=== PATIENT | female | born 1990 | race Caucasian/White ===

== ENCOUNTER 2022-12-17 15:59 | Outpatient (REF) | payer MEDICAID, SELFPAY ==
[2022-12-17 15:52] LABS: HCT 39.2 % (36.0-46.0); MCHC 33.2 % (32.0-36.0); MCV 91 fL (80-95); MPV 9.8 fL (8.0-11.0); Platelet Count 412 10^3/uL (130-400); RBC 4.33 10^6/uL (3.93-5.22); RDW 12.8 % (11.7-14.6); RDW-SD 42.3 fL; WBC 12.48 10^3/uL (4.4-10.8)
[2022-12-17 16:21] LABS: Anion Gap 9.6 mmol/L (3-11); BUN 13 mg/dL (7-18); CO2 24.4 mmol/L (21.0-32.0); CREATININE 0.9 mg/dL (0.55-1.02); Calcium 9.2 mg/dL (8.5-10.1); Chloride 100 mmol/L (98-107); Estimated GFR 86.57 (mL/min/1.73m2); Glucose 101 mg/dL (74-106); Potassium 4.2 mmol/L (3.5-5.1); Sodium 134 mmol/L (136-145); TSH 1.28 uIU/mL (0.36-3.74)
[2022-12-17 17:00] LABS: Vitamin D 25 Total 33.3 ng/mL (30-100)
[2022-12-17 17:03] LABS: Hemoglobin A1C 5.5 % (<5.7)
== END 2022-12-17 16:00 | disposition home or self-care (01) ==
LOC: NCHCN 15:59
PROVIDERS: PCP Nurse Practitioner Family; Visit Provider Nurse Practitioner Family
DX: F41.8 Other specified anxiety disorders (principal); E55.9 Vitamin D deficiency, unspecified; R73.03 Prediabetes; E66.3 Overweight; G43.909 Migraine, unspecified, not intractable, without status migrainosus
CPT/HCPCS: 80048; 82306; 85027; 83036; 84443

== ENCOUNTER 2023-03-18 16:27 | Outpatient (REF) | payer MEDICAID, SELFPAY | END 2023-03-18 16:28 | disposition home or self-care (01) | LOC: NCHCN 16:27 | PROVIDERS: PCP Nurse Practitioner Family; Visit Provider Nurse Practitioner Family | DX: Z87.42 Personal history of other diseases of the female genital tract (principal); N89.8 Other specified noninflammatory disorders of vagina | CPT/HCPCS: 87480; 87510; 87660 ==

== ENCOUNTER 2023-04-09 11:01 | Outpatient (REF) | payer MEDICAID, SELFPAY ==
--- NOTE | 2023-04-09 10:00 | PAPFT_PTH ---
PATIENT: Lory Del Toro LOC: [facility][id number] AGE/SX: 33/F ROOM: RE04/09/[address]: Arlen Nava : 1990 BED: DIS: 04/09/2023 SPEC #: [id number] RECD: 04/09/23 18:17 STATUS: AMARILIS REQ #: [id number] LUCI: 04/09/23 10:[address]: Arlen Nava DEPT: [facility] Cytology RECD BY: Suzanne Tineo Tissues: 1 - CX/ENDOCX FOR PAP SMEARS Procedures: PAP THIN PREP/UVM Screening HPV DNA PROBE Comments: [id number]
--- OUTSIDE RECORDS SUMMARY | 2023-04-09 11:04 | XMS_ITS ---
Author Name Camelia Lee Address [address] [place] [address] Organization [facility] Address [address] [place] [address] Support Name Relationship Address Phone GILBERT PECK Guarantor [address] [place], [place] [id number] ELLEN BURTON Emergency Contact [address] [place] [address] Care Team Providers Care Predatory Animal Hunter Name Role Phone Camelia Lee Unavailable [phone] PROBLEMS Type Condition ICD9-CM Code BDI01-AW Code Onset Dates Condition Status SNOMED Code Problem Smoking F17.200 Active 66555265 Problem Overweight (BMI 25.0-29.9) E66.3 Active 371905536 Problem Depression with anxiety F41.8 Feb, Active 162013142 Problem Osteopenia M85.80 Active 80342108 Problem Oral contraceptive use Z30.41 Active [id number] ALLERGIES No Known Allergies ENCOUNTERS Encounter Location Date Diagnosis [facility] [address] [place] [address] Nov, [facility] [address] [place] [address] Aug, [facility] [address] [place] [address] Aug, Abscess L02.91 [facility] [address] [facility] [address] Apr, UNKNOWN Apr, [facility] [address] [place] [address] March, [facility] [place] [address] [place] [address] March, Depression with anxiety F41.8 [facility] [address] [place] [address] March, [facility] [address] [place] [address] Jan, [facility] [address] [place] [address] Jul, Abscess L02.91 [facility] [address] [place] [address] Jul, [facility] [address] [place] [address] Jun, [facility] [address] [place] [address] May, Screening for cervical cancer Z12.4 ; Oral contraceptive use Z30.41 and Smoking F17.200 [facility] [address] [place] [address] Apr, Well adult health check Z00.00 ; Depression with anxiety F41.8 ; Osteopenia M85.80 ; Smoking F17.200 ; Overweight (BMI 25.0-29.9) E66.3 ; Encounter for drug screening Z02.83 and Alcohol screening Z13.89 [facility] [address] [place] [address] March, [facility] [address] [place] [address] 16 Mar, 2019 Oral contraceptive use Z30.41 [facility] [address] [place] [address] Nov, [facility] [address] [place] [address] 15 Apr, 2018 Oral contraceptive prescribed Z30.011 ; Oral contraceptive use Z30.41 and Smoking F17.200 [facility] [address] [place] [address] Jan, Osteopenia M85.80 ; Depression with anxiety F41.8 ; Obesity (BMI 30-39.9) E66.9 ; Heartburn R12 ; Family history of diabetes mellitus (DM) Z83.3 and Encounter for immunization Z23 [facility] [address] [place] [address] Aug, [facility] [address] [place] [address] Aug, Strep pharyngitis J02.0 and Left otitis media H66.92 [facility] [address] [place] [address] Aug, Grief counseling Z71.89 [facility] [address] [facility] [address] [place] [address] Feb, Abscess of axilla, left L02.412 ; History of MRSA infection Z86.14 and Tachycardia R00.0 [facility] [address] [place] [address] 18 Feb, 2016 [facility] [address] [place] [address] Feb, [facility] [address] [place] [address] Feb, Abscess of axilla, left L02.412 [facility] [address] [place] [address] Feb, [facility] [address] [place] [address] Dec, [facility] [address] [place] [address] Apr, Heartburn 787.1 ; AMENORRHEA 626.0 and Abdominal pain, epigastric 789.06 [facility] [address] [place] [address] Apr, AMENORRHEA 626.0 ; Heartburn 787.1 and Abdominal pain, epigastric 789.06 [facility] [address] [place] [address] Jan, DEPO PROVERA FOR CONTROL V25.9 [facility] [address] [place] [address] Oct, Contraceptive management V25.9 [facility] [address] [place] [address] Aug, DEPO PROVERA FOR CONTROL V25.9 [facility] [address] [place] [address] May, DEPO PROVERA FOR CONTROL V25.9 UNKNOWN May, [facility] [address] [place] [address] Feb, CONTRACEPTIVE MANGMT NEC V25.09 [facility] [address] [place] [address] Nov, [facility] [address] [place] [address] Nov, CONTRACEPTIVE MANGMT NEC V25.09 [facility] [address] [place] [address] Aug, DEPO PROVERA FOR CONTROL V25.9 [facility] TE[facility] [address] [place] [address] Jun, DEPO PROVERA FOR CONTROL V25.9 [facility] [address] [place] [address] March, CONTRACEPTIVE MANGMT NEC V25.09 [facility] [address] [place] [address] March, [facility] [address] [place] [address] Jan, Osteopenia 733.90 ; CERVICALGIA 723.1 and Back pain 724.5 [facility] [address] [place] [address] Jan, Osteopenia 733.90 ; CERVICALGIA 723.1 and Back pain 724.5 [facility] [address] [place] [address] 17 Nov, 2010 [facility] [address] [place] [address] 13 Oct, 2010 Depression with anxiety 300.4 and Heartburn 787.1 [facility] [address] [place] [address] 04 Sep, 2010 Depression with anxiety 300.4 [facility] [address] [place] [address] 28 Aug, 2010 [facility] [address] [place] [address] Aug, [facility] [address] [place] [address] Aug, [facility] OFF[facility] [address] [place] [address] 19 Aug, 2010 Low back pain 724.2 and CERVICALGIA 723.1 [facility] [address] [place] [address] 14 Aug, 2010 ORTHOPEDIC OFFICE [address] [place] [address] 28 Jul, 2010 CERVICALGIA 723.1 and Low back pain 724.2 [facility] [address] [place] [address] 27 Jul, 2010 Back pain 724.[address] [place] [address] 22 Jul, 2010 [facility] [address] [place] [address] 08 Jul, 2010 FATIGUE 780.79 [facility] [address] [place] [address] 08 Jul, 2010 FATIGUE 780.79 ; Back pain 724.5 and Tachycardia 785.0 [facility] [address] [place] [address] 16 Nov, 2008 CONTRACEPTIVE MANGMT NEC V25.09 and CONTRACEPT SURVEILL NOS V25.40 [facility] [address] [place] [address] Jun, Chlamydia 483.1 UNKNOWN Jun, [facility] [address] [place] [address] May, ROUTINE MEDICAL EXAM V70.0 ; CONTRACEPT SURVEILL NEC V25.49 ; SCRN UNSPCF CHLMYD DIS V73.98 ; SCREEN FOR VENERAL DISEASE STD V74.5 ; CONTRACEPT MGMT-EMERGNCY V25.03 ; SCREEN-DEFIC ANEMIA NEC V78.1 ; PAP SMEAR V76.2 and Anemia associated with other specified nutritional deficiency 281.8 [facility] [address] [place] [address] May, CONTRACEPTIVE MANGMT NEC V25.09 and CONTRACEPT MGMT-EMERGNCY V25.03 IMMUNIZATIONS Vaccine Route Administration Date Status Tdap adacel or Boostrix NONS FUENTES Adults IM Intramuscular January 24, 2018 Administered SOCIAL HISTORY Qualifiers Date Current Smoker 02/22/2008 REASON FOR REFERRAL FUNCTIONAL STATUS PLAN OF CARE Activity Details VITAL SIGNS Height 60 in 2019-07-23 Height 60 in 2019-05-25 Height 60 in 2019-04-30 Height 60 in 2018-04-18 Height 60 in 2018-01-24 Height 60 in 2017-08-29 Height 60 in 2016-02-22 Height 60 in 2016-02-14 Height N/A in 2013-04-27 Height N/A in 2013-01-22 Height N/A in 2012-10-30 Height N/A in 2012-08-05 Height N/A in 2012-05-14 Height N/A in 2012-02-13 Height N/A in 2011-11-19 Height N/A in 2011-08-27 Height N/A in 2011-06-04 Height 60 in 2010-10-16 Height N/A in 2008-05-31 Weight 146.6 lbs 2019-07-23 Weight 142.9 lbs 2019-05-25 Weight 141.2 lbs 2019-04-30 Weight 157.6 lbs 2018-04-18 Weight 163.2 lbs 2018-01-24 Weight 159.8 lbs 2017-08-29 Weight 168 lbs 2016-02-22 Weight 165.2 lbs 2016-02-14 Weight 164.8 lbs 2013-04-27 Weight 165.8 lbs 2013-01-22 Weight 161.4 lbs 2012-10-30 Weight 157.6 lbs 2012-08-05 Weight 161 lbs 2012-05-14 Weight 167.6 lbs 2012-02-13 Weight 161 lbs 2011-11-19 Weight 158 lb 4 oz lbs 2011-08-27 Weight 163.6 lbs 2011-06-04 Weight 172 lbs 2011-01-31 Weight 168 lbs 2010-10-16 Weight 168 lbs 2010-09-07 Weight 160 lbs 2010-07-12 Weight N/A lbs 2008-05-31 BMI 28.63 kg/m2 2019-07-23 BMI 27.91 kg/m2 2019-05-25 BMI 27.57 kg/m2 2019-04-30 BMI 30.78 kg/m2 2018-04-18 BMI 31.87 kg/m2 2018-01-24 BMI 31.21 kg/m2 2017-08-29 BMI 32.81 kg/m2 2016-02-22 BMI 32.26 kg/m2 2016-02-14 BMI 32.18 kg/m2 2013-04-27 BMI 32.38 kg/m2 2013-01-22 BMI 31.52 kg/m2 2012-10-30 BMI 30.78 kg/m2 2012-08-05 BMI 31.44 kg/m2 2012-05-14 BMI 32.73 kg/m2 2012-02-13 BMI 31.44 kg/m2 2011-11-19 BMI 30.90 kg/m2 2011-08-27 BMI 31.95 kg/m2 2011-06-04 BMI 32.81 kg/m2 2010-10-16 BMI N/A kg/m2 2008-05-31 Temperature 97.9 degrees Fahrenheit Temperature 98.3 degrees Fahrenheit Temperature TYMPANIC:98.1 degrees Fahrenheit 2019-04-30 Temperature 98.4 degrees Fahrenheit Temperature 99.5 degrees Fahrenheit Temperature 98.5 degrees Fahrenheit Temperature 100 degrees Fahrenheit 2016-02-04 0 Temperature 99.5 degrees Fahrenheit Temperature TYMPANIC:98.6 degrees Fahrenheit 2013-04-27 Temperature ORAL:98.3 degrees Fahrenheit 01-04-21 Temperature TYMPANIC:99.9 degrees Fahrenheit 2011-11-19 Temperature TYMPANIC:99.1 degrees Fahrenheit 2011-03-08 Temperature 99.4 degrees Fahrenheit Temperature 99.4 degrees Fahrenheit Temperature 99.1 degrees Fahrenheit Heart Rate 98 /min 2019-07-23 Heart Rate 86 /min 2019-05-25 Heart Rate 85 /min 2019-04-30 Heart Rate 98 /min 2018-04-18 Heart Rate 120 /min 2018-01-24 Heart Rate 128 /min 2017-08-29 Heart Rate 120 /min 2016-02-22 Heart Rate 146 /min 2016-02-14 Heart Rate 112 /min 2013-04-27 Heart Rate 108 /min 2013-01-22 Heart Rate 102 /min 2012-10-30 Heart Rate 102 /min 2012-08-05 Heart Rate 92 /min 2012-05-14 Heart Rate 100 /min 2012-02-13 Heart Rate 109 /min 2011-11-19 Heart Rate 100 /min 2011-08-27 Heart Rate 98 /min 2011-06-04 Heart Rate 110 /min 2011-03-08 Heart Rate 72 /min 2011-01-31 Heart Rate 111 /min 2010-10-16 Heart Rate 110 /min 2010-09-07 Heart Rate 117 /min 2010-07-12 Heart Rate N/A /min 2008-05-31 Respiratory Rate 18 /min 2019-07-23 Respiratory Rate 16 /min 2019-05-25 Respiratory Rate 16 /min 2019-04-30 Respiratory Rate 18 /min 2018-04-18 Respiratory Rate 18 /min 2018-01-24 Respiratory Rate 18 /min 2017-08-29 Respiratory Rate 18 /min 2016-02-22 Respiratory Rate 18 /min 2016-02-14 Respiratory Rate 18 /min 2013-04-27 Respiratory Rate 18 /min 2013-01-22 Respiratory Rate 16 /min 2012-10-30 Respiratory Rate 18 /min 2012-08-05 Respiratory Rate 20 /min 2012-05-14 Respiratory Rate 18 /min 2012-02-13 Respiratory Rate 18 /min 2011-11-19 Respiratory Rate 18 /min 2011-08-27 Respiratory Rate 18 /min 2011-06-04 Respiratory Rate 18 /min 2011-03-08 Respiratory Rate 18 /min 2011-01-31 Respiratory Rate 18 /min 2010-10-16 Respiratory Rate 18 /min 2010-09-07 Respiratory Rate 16 /min 2010-07-12 Respiratory Rate N/A /min 2008-05-31 Oximetry 99 % 2019-07-23 Oximetry 98 % 2019-05-25 Oximetry 98 % 2019-04-30 Oximetry 98 % 2018-04-18 Oximetry 98 % 2018-01-24 Oximetry 97 % 2017-08-29 Oximetry 98 % 2016-02-22 Oximetry 98 % 2016-02-14 Oximetry 98 % 2013-04-27 Oximetry 98 % 2013-01-22 Oximetry 98 % 2012-10-30 Oximetry 98 % 2012-08-05 Oximetry 98 % 2011-11-19 Oximetry 100 % 2011-08-27 Oximetry 96 % 2010-10-16 Oximetry 98 % 2010-09-07 Oximetry 97 % 2010-07-12 Blood pressure systolic 130 mm Hg Blood pressure diastolic 78 mm Hg 2019-07 MEDICATIONS Medication Instructions Dosage Frequency Start Date End Date Duration Status Norgestim-Eth Estrad Triphasic 0.18/0.215/0.25 MG-35 MCG Orally Once a day 1 tablet 24h Aug, 84 day(s) Active PROCEDURES Procedure Date Ordered Result Body Site CONTRACEPTIVE PILLS CONTROL May 31, 2008 CONTRACEPTIVE SUPPLY CONDOM MALE EA May 31, 2008 DEPO PROVERA () May 14, 2012 Pro.cl.INJ. SC/IM,Per 636 Med,Hosp.OPD(74887) May 14, 2012 DEPO PROVERA () March 08, 2011 No HTN DX,BP <120/80 (13975) Aug 29, 2017 Pro.cl.INJ. SC/IM,Per 636 Med,Hosp.OPD(14108) Nov 19, 2011 FAMILY PLANNING CONDOMS Nov 19, 2008 Pro.cl.INJ. SC/IM,Per 636 Med,Hosp.OPD(00059) Aug 05, 2012 No HTN DX,BP <120/80 (72420) April 18, 2018 Tob user, counseled (95482) May 25, 2019 UA- TEST ([facility] code 86142) April 27, 2013 Pro.cl.INJ. SC/IM,Per 636 Med,Hosp.OPD(61990) Jun 04, 2011 CONTRACEPTIVE PILLS CONTROL May 04, 2008 Tob non-user (39722) April 18, 2018 MEPILEX BORDER,3X3,4X4,6X6(17444) February 22, 2016 Med Rec done (83189) April 30, 2019 Tob non-user (11341) Aug 29, 2017 SBIRT SCREEN negative April 30, 2019 Tob non-user (37403) January 24, 2018 PLAN B (levonorgestrel) May 31, 2008 Med Rec done (81526) January 24, 2018 DEPO PROVERA () Nov 19, 2011 Med Rec done (49588) Aug 29, 2017 DEPO PROVERA () Jun 04, 2011 DEPO PROVERA () Aug 05, 2012 CONTRACEPTIVE SUPPLY CONDOM MALE EA Nov 19, 2008 Med Rec done (61881) April 18, 2018 Pro.cl.INJ. SC/IM,Per 636 Med,Hosp.OPD(96006) March 08, 2011 No HTN DX,BP <120/80 (63862) April 30, 2019 IMMUNIZATION INJ FEE, January 24, 2018 CONTRACEPTIVE PILLS CONTROL Nov 19, 2008 No HTN DX,BP <120/80 (77345) May 25, 2019 Hgb fingerstick (Hemocue) (chg code 60062) May 31 08 CONTRACEPTIVE SUPPLY CONDOM MALE EA Jun 08, 2008 URINE TEST Nov 19, 2008 DEPO PROVERA () January 22, 2013 BMI elevated, counseled (64689) April 30, 2019 Tob user, counseled (81360) April 30, 2019 PLAN B (levonorgestrel) May 04, 2008 DEPO PROVERA () February 13, 2012 DEPO PROVERA () Oct 30, 2012 CYTOPATH, C/V, THIN LAYER May 31, 2008 UA- TEST (chg code 97235) May 14, 2012 I&D ABCESS/FLOWER.CYST-COMPL.OR MULT(92744) February 13 6 [facility],DIAG.PSYCH.EVAL.(74017) March 23, 2020 Dep screen neg (95348) April 30, 2019 Cyto:thin prep (82492) May 25, 2019 Pro.cl.INJ. SC/IM,Per 636 Med,Hosp.OPD(62089) February DEPO PROVERA () Aug 27, 2011 PLAN B (levonorgestrel) Nov 19, 2008 CONTRACEPTIVE SUPPLY CONDOM MALE EA May 04, 2008 RAPID STREP SCREEN(33368) Aug 29, 2017 Tdap adacel or Boostrix NONSTATE Adults January 24, 2018 Med Rec done (50234) May 25, 2019 UA- TEST (chg code 32098) April 18, 2018 N.GONORRHOEAE, DNA, AMP PROB May 31, 2008 Pro.cl.INJ. SC/IM,Per 636 Med,Hosp.OPD(61824) Oct 30, 2012 CHYLMD TRACH, DNA, AMP PROBE May 31, 2008 Pro.cl.INJ. SC/IM,Per 636 Med,Hosp.OPD(47684) January RESULTS Name Result Date Reference Range CYTO: PAP SMEAR W/HPV (5yr regimen) 05-25 RESULT UA-Urine ,IN OFFICE 2018-04-18 RESULT NEG CYTO: PAP SMEAR-Screening 2018-04-07 RESULT COMPMET 2018-01-24 HEMOGLOBIN A1C 2018-01-24 LIPID W/ CALCULATED LDL 2018-01-24 TSH 2018-01-24 TSH 1.291 0.360-4.800 RAPID STREP SCREEN,IN OFFICE (2 Swab System) 2017-08-29 Result POS SENSITIVITY ORGANISM 1 2016-02-14 CULTURE WOUND 2016-02-14 CBC WITH AUTO DIFF 2014-11-09 CORRECT ANC WBC 14.2 HGB 10.9 HCT 31.6 PLATELET RBC 3.54 MCV MCH MCHC RDW MPV ANC #IG #LYMPH #EOS #MONO #BASO NEUTROPHIL % IG% LYMPHOCYTE % MONOCYTE % EOSINOPHIL % BASOPHIL % ATYP LYMPH PLT MORPH PROMYELO MACRO MICRO NRBC HYPO BLAST ANISO BAND BASO EOS LYMPH META MONO MYELO POIK RBC MORPH SEG MANUAL DIFF #IMM GRAN %IMM GRAN GLUCOSE ABRAHAM 3 HR 2014-08-25 GLUC 1HR PP GLUC 2HR PP GLUC 3HR PP GLUCOSE GLUCOSE 1 HOUR 89 GLUCOSE 2 HOUR-PREG 151 GLUCOSE 3 HOUR-PREG 113 GLUCOSE FASTING 111 RPR 2014-04-07 RPR Non-Reactive HIV 1/2 ANTIBODIES 2014-04-07 HIV Screen 4th Generation wRfx HIV 1/0/2 ABS QUAL NON-REACTIVE HIV 1/0/2 ABS HIV 1/0/2 ABS INDEX VALUE <0.05 HIV 1/2 [facility] HEP-B, SURFACE ANTIGEN 2014-04-07 HEP B SURFACE ANTIGEN NON-REACTIVE HBsAg [facility] MULTIPLE LABS 2014-04-07 TYPE AND SCREEN 2014-04-07 ABO GROUP A NEG RH ANTIBODY SCREEN NEGATIVE CBC WITH AUTO DIFF 2014-04-07 CORRECT ANC WBC 9.2 HGB 12.0 HCT 36.1 PLATELET 243 RBC 4.08 MCV 88.5 MCH 29.4 MCHC 33.2 RDW 12.9 MPV 9.9 ANC #IG #LYMPH #EOS #MONO #BASO NEUTROPHIL % IG% LYMPHOCYTE % MONOCYTE % EOSINOPHIL % BASOPHIL % ATYP LYMPH PLT MORPH PROMYELO MACRO MICRO NRBC HYPO BLAST ANISO BAND BASO EOS LYMPH META MONO MYELO POIK RBC MORPH SEG MANUAL DIFF #IMM GRAN %IMM GRAN AMYLASE 2013-04-27 AMYLASE 38 25-115 CBC WITH AUTO DIFF 2013-04-27 COMPMET 2013-04-27 H PYLORI AB 2013-04-27 H.PYLORI ANTIBODY <0.9 0.0-0.8 LIPASE 2013-04-27 LIPASE 85 73-393 TSH 2013-04-27 THYROID STIMULATING HORMONE 2.300 0.360-4.800 UA-Urine ,IN OFFICE 2013-04-27 RESULT neg UA-Urine ,IN OFFICE 2012-05-14 RESULT neg AMYLASE 2011-07-17 AMYLASE 34 28-100 BASEMET 2011-07-17 CBC WITH MANUAL DIFF 2011-07-17 HCG QUALITATIVE SERUM (+/-) 2011-07-17 LIVER FUNCTION TESTS 2011-07-17 DEXA: Hip and Spine CPT-98442 Physical Therapy-Eval.&Treat MRI Cervical Spine W/O Contrast CPT-90509 MRI Lumbar Spine W/O Contrast CPT-39819 X ray: Cervical Spine 4-6 Views Physical Therapy-Eval.&Treat X ray: Lumbar Spine 2-3 Views CBC WITH AUTO DIFF 2010-07-12 COMPMET 2010-07-12 TSH 2010-07-12 THYROID STIMULATING HORMONE 1.322 0.340-5.600 HEMOGLOBIN FINGERSTICK Hgb-fingerstick 11.5 Hct-calculated Chlamydia PCR-send out X GC DNA Probe-send out X CYTO: PAP SMEAR-Screening RESULT REASON FOR VISIT cpe, Norgestim-Eth Estrad Triphasic , RF control, Therapist went home sick lmom on 05/27-JS, therapy f/u appt, depression f/u, Email needed for zoom LL lmom on 04/22-JS , n/s therapy 03/30, follow up, consult referral done, Medications listed below as unknown were not reviewed with patient. Medications managed by prescribing provider, depression medication / counseling, allergy symptoms/cold symptoms, Cyst, Cyst, 6 WK FU smoking cessation, medication, lab, 3-4 wk PAP / smoking, patient requesting refill on the ortho tricyclen, patient states no new concerns, CPE, She does not need refills today--MR, She does not want to do a pap today she will schedule to come back for that--MR, She does want to quit smoking--MR, CPE pt r/s 04/01, update phone number, BC pill refill, Cold sores, flu,not going away--pateitn cancelled did not want to r/s 09/16, Discuss control, No refills needed-GS, requested to be seen, strep, ?strep, Patient states that she has been having a sore throat, ear ache, runny nose-GS, Counseling--patient cancelled 08/15, Wants appt for counseling-RW, f/u MRSA,return to work, follow up, MRSA;lmom for callback 4-14jg, ingrown hair to right axilla very painful. SG ROS & PE, 2nd toe, left foot, 01/06 FAMOTIDINE REFILL-no refill without apt, pap smear & discuss what pt needs to do to get , tobacco form due, blood draw, discuss issues-stopped Depo, attempting , Meds reviewed by pt,no longer taking: Depo & Prilosec -KF, depo prove ra, depo provera, depo provera, depo provera injection, depo provera, depo provera injection, . Depo Provera for control, depro shot appt, Depo, rfku-hxuyjem-o/s'd by pt 02/10, Med list correction, depo provera, Meds reviewed, no longer taking: sertraline, ranitidine, Meds reviewed, new meds: Prilosec OTC - tdc, Depo Provera for control, Last injection given 06/04/2011-due 08/26/11, Depo- Provera, depo-provera injection, depo-provera / pt rs, depo-provera--patient r/s 05/14, Depo-Provera, Depo shot per tel enc, Medications reviewed w/pt,med. list is correct - tdc, reschedule depo--, Depo shot, blood draw, back issue-pt states she has had back pain since age 8, was told vertebrae moves & muscle spasms, reports pain all the time but worse recently, refill - ranitidine, f/u anxiety, pt states she thinks that her meds are working, pt would like something for heartburn, Medications reviewed w/pt,med. list is correct, anxiety--extended per SG, Meds reviewed, no longer taking: nabumetone, alprazolam -th, anxiety-, dexa, PT, back pain, Cervical/Lumbar Spine, MRI results, Pt is here for the results of her back MRIs. Pt states her symptoms are all the same, no change., Pt states that the Nabumetone is not working. No other changes to her med list. JG, mri cspine/ mri lspine, 724.5 Back pain SG, BACK PAIN, pt states that she's been having constant pain in her back since she was young. states that the weather makes the pain worse, states that she did see Camelia who thought that it may be sciatic pain d/t pain shooting down both legs though at different times, describes thepain as similar to needles going straight down my back , also feels like her muscle is becoming tense, states taking ibu prn. was taking ibu 800 mg prior to changing her PCP. was also on prednisone a few weeks ago for her back pain which did help with the swelling and pain in her back, states no longer taking prednisone. can you plz stop on her Current Medications, referral/PT order, l spine, new pcp--former PD & family planning, Meds reviewed, no longer taking: Zithromax - th, pt states she has ?s on blood work, she is tired all time, b/c problem, supply, STD CT recheck, supply, STD TREATMENT, Pos. CT, PE/PAP, enrollment Insurance Providers Health Insurance Type Health Plan Insurance Address Health Plan Insurance Phone Health Plan Insurance Name Health Plan Coverage Dates Member ID Patient Relationship to Subscriber Patient Address Patient Phone Patient Name Patient Date of Subscriber ID Subscriber Name Subscriber Date of Group No zzFAMILY PLANNING [address] [facility] [id number] zzFAMILY PLANNING self GILBERT BURTON [id number] [place]ID [place] [facility] [id number] [place] GILBERT BURTON [id number] [place] [facility] [id number] MEDICAID [place] self GILBERT BURTON [id number] SELF PAY NO INSURANCE ANY STRE[address] [facility] [id number] SELF PAY NO INSURANCE self GILBERT BURTON [id number]
[2023-04-11 14:11] LABS: Chlamydia Result Negative (Negative); GC Result Negative (Negative)
== END 2023-04-09 11:02 | disposition home or self-care (01) ==
LOC: NCHCN 11:01
PROVIDERS: PCP Nurse Practitioner Family; Visit Provider Nurse Practitioner Family
DX: Z11.3 Encounter for screening for infections with a predominantly sexual mode of transmission (principal); Z12.4 Encounter for screening for malignant neoplasm of cervix; Z11.51 Encounter for screening for human papillomavirus (HPV)
CPT/HCPCS: 87491; 87591; 88142; 87624

== ENCOUNTER 2023-12-16 09:21 | Outpatient (REF) | payer MEDICAID, SELFPAY ==
--- OUTSIDE RECORDS SUMMARY | 2023-12-16 09:26 | XMS_ITS | Patient Health Record ---
Author Name Unknown [facility] Address [address] [place] [address] Care Team Providers Care Drug Enforcement Administration Agent Name Role Phone KirkCamelia sutherland Primary Care Provider Kishor Garcia Unavailable [phone] REASON FOR REFERRAL No Information MEDICATIONS Medication SIG (Take, Route, Frequency, Duration) Notes Start Date End Date Status Norgestim-Eth Estrad Triphasic 0.18/0.215/0.25 MG-35 MCG 1 tablet Orally Once a day for 84 day(s) 08/05/2020 Active IMMUNIZATIONS Vaccine Route Administration Date Status Comme nts Tdap adacel or Boostrix NONSTATE Adults IM Intramuscular 01/24/2018 Administered SOCIAL HISTORY Tobacco Use: Social History Observation Description Date Details (start date - stop date) Current Smoker 02/22/2008 - NA Sex Assigned At : Social History Observation Description Sex Assigned At Unknown SMOKING Question Answer Notes Are you a: current smoker Are you interested in quitting? Ready to quit How many cigarettes a day do you smoke? 11-20 (1 /2 to 1 pack) How soon after you wake up d o you smoke your first cigarette? within 5 min How often do you smoke cigarettes? every day When did you start smoking? 02/22/2008 PROBLEMS Problem Type ICD Code Onset Dates Problem Status W/U Status Risk SNOMED Code Notes Problem Depression with anxiety (F41.8) 6 Active confirmed [id number] Problem Osteopenia (M85.80) Active confirmed Osteopenia (258460247) Problem Oral contraceptive use (Z30.41) Active confirmed Surveillance of oral contraception done (254048455775763 ) Problem Overweight (BMI 25.0-29.9) (E66.3) Active confirmed Overweight (014753331) Problem Smoking (F17.200) Active confirmed [id number] PLAN OF TREATMENT No Information Insurance Providers Payer Name Payer Address Payer Phone Subscriber Number Group Number Insured Name Patient Relationship to Insured Coverage Start Date Coverage End Date [place]ICAID [place] E[place] [employer] [place], [place] [id number] GILBERT PECK Self - patient is the insured SELF PAY [place] [address] [address] GILBERT PECK Self - patient is the insured MEDICAL (GENERAL) HISTORY Medical History History ICD Code depression with anxiety-stable off medic ation was on Depo Provera from 10/12-10/2017, Dr. Cooper [employer] smoker osteopenia heartburn back pain, cervicalgia h/o MRSA Surgical History Surgery Date(Month/Year) C section 10/07/09 11/09/2014 Hospitalization History Reason Date(Month/Year) for childbirth
[2023-12-16 15:48] LABS: Hemoglobin A1C 5.6 % (<5.7)
== END 2023-12-16 09:22 | disposition home or self-care (01) ==
LOC: NCHCN 09:21
PROVIDERS: PCP Nurse Practitioner Family; Visit Provider Nurse Practitioner Family
DX: R73.03 Prediabetes (principal)
CPT/HCPCS: 83036

== ENCOUNTER 2024-01-09 15:58 | Outpatient (REF) | payer MEDICAID, SELFPAY ==
[2024-01-09 18:45] LABS: Abs Immature Grans 0.03 10^3/uL (0.0-0.06); Absolute Basophil Count 0.05 10^3/uL (0.0-0.2); Absolute Eosinophil Count 0.24 10^3/uL (0.0-0.7); Absolute Lymphocyte Count 2.99 10^3/uL (1.2-3.4); Absolute Monocyte Count 0.84 10^3/uL (0.1-0.8); Absolute Neutrophil Count 5.73 10^3/uL (1.2-6.7); Basophils % 0.5; Eosinophils % 2.4; HCT 38.9 % (36.0-46.0); HGB 12.7 g/dL (11.2-15.7); Immature Grans % 0.3; Lymphocytes % 30.3; MCH 29.2 pg (27.0-33.0); MCHC 32.6 % (32.0-36.0); MCV 89 fL (80-95); MPV 9.8 fL (8.0-11.0); Monocytes % 8.5; Platelet Count 349 10^3/uL (130-400); RBC 4.35 10^6/uL (3.93-5.22); RDW 12.8 % (11.7-14.6); RDW-SD 42.6 fL; WBC 9.88 10^3/uL (4.4-10.8)
[2024-01-09 19:08] LABS: FREE T4 0.99 ng/dL (0.76-1.46); TSH 2.34 uIU/Ml (0.36-3.74)
[2024-01-09 19:21] LABS: Vitamin D 25 Total 22.3 ng/mL (30-100)
== END 2024-01-09 15:59 | disposition home or self-care (01) ==
LOC: NCHCN 15:58
PROVIDERS: PCP Nurse Practitioner Family; Visit Provider Nurse Practitioner Family
DX: E55.9 Vitamin D deficiency, unspecified (principal); Z00.00 Encounter for general adult medical examination without abnormal findings
CPT/HCPCS: 82306; 84439; 84443; 85025

== ENCOUNTER 2024-03-27 18:05 | Outpatient (REF) | payer MEDICAID, SELFPAY ==
[2024-03-27 21:03] LABS: HCG Qual (Serum) Negative
== END 2024-03-27 18:06 | disposition home or self-care (01) ==
LOC: LBN 18:05
PROVIDERS: PCP Nurse Practitioner Family; Visit Provider Nurse Practitioner Family
DX: Z32.02 Encounter for pregnancy test, result negative (principal)
CPT/HCPCS: 84703

== ENCOUNTER 2024-06-05 16:45 | Outpatient (REF) | payer MEDICAID, SELFPAY ==
--- NOTE | 2024-06-05 15:00 | PAPFT_PTH ---
PATIENT: Lory Del Toro LOC: [facility]#:[id number] AGE/SX: 34/F ROOM: RE06/05/[address]: Maria Guallpa : 1990 BED: DIS: 06/05/2024 SPEC #: [id number] RECD: 06/08/24 11:47 STATUS: AMARILIS REQ #: [id number] LUCI: 06/05/24 15:[address]: Maria Guallpa DEPT: [facility] Cytology RECD BY: Arminda Stovall ENTERED: 06/08/24 11:49 SP TYPE: PAPFT OTHR DR: Arlen Nava Tissues: 1 - CX/ENDOCX FOR PAP SMEARS Procedures: PAP THIN PREP/[facility] Screening HPV DNA PROBE Comments: [id number] (HPV 16 & 18/45)
--- OUTSIDE RECORDS SUMMARY | 2024-06-05 16:47 | XMS_ITS | Clinical Summary ---
Author Organization [facility] Address [facility] [place] [address] Care Team Providers Care Orthodontist Assistant Name Role Phone Symone Cuevas APRN Primary Care Provider [phone] Medications Medication Sig Dispensed Refills Start Date End Date Status ranitidine (ZANTAC) 150 mg tablet Take 150 mg by mouth 2 times daily. Active sertraline (ZOLOFT) 50 mg tablet Take 50 mg by mouth daily. Active medroxyPROGESTERone,Co ntracep, (DEPO-PROVERA) 150 mg/mL Syrg Inject 150 mg into the muscle Q 3 Months. 03/19/2011 Active Family History Medical History Relation Comments Depression Maternal Grandmother Relation Status Comments Father Alive Maternal Grandmother Mother Alive Social History Tobacco Use Types Packs/Day Years Used Date Smoking Tobacco: Every Day Cigarettes 1 3 Comments:patient is single, she has one child one and a half years old and is not working Alcohol Use Standard Drinks/Week Comments Not Asked 0 (1 standard drink = 0.6 oz pur e alcohol) Sex and Gender Information Value Date Recorded Sex Assigned at Not on file Gender Identity Not on file Sexual Orientation Not on file Last Filed Vital Signs Vital Sign Reading Time Taken Comments Blood Pressure 142/90 03/19/2011 12:46 PM EDT Pulse 117 03/19/2011 12:46 PM EDT Temperature - - Respiratory Rate - - Oxygen Saturation 98% 03/19/2011 12:46 PM EDT Inhaled Oxygen Concentration - - Weight 77.1 kg (170 lb) 03/19/2011 12:46 PM EDT Height 152.4 cm (5') 03/19/2011 12:46 PM EDT Body Mass Index 33.2 03/19/2011 12:46 PM EDT Plan of Treatment Health Maintenance Due Date Last Done Comments HIV screen 2007 Hepatitis C Screening 2007 Lipid Screening 2007 Hepatitis B vaccine (0-59 yrs) (1) 2008 Tdap adult 2008 Tetanus vaccine 2008 Covid-19 Vaccine (1 - 2022-24 season) 2023 HPV test 05/25/2024 05/25/2019 PAP Smear 05/25/2024 05/25/2019 Influenza (Flu) vaccine (1 o f 1 - Influenza standard series) 07/05/2024 Procedures Procedure Name Priority Date/Time Associated Diagnosis Comments HPV Routine 05/25/2019 12:00 PM EDT PER DIEM NURSE CYTOLOGY FINAL REPORT Routine 05/25/2019 12:00 PM EDT from Last 3 Months or Most Recently Relevant to Health Maintenance Results * HPV (05/25/2019 12:00 PM EDT) HPV 16 NEGATIVE NEGATIVE [facility] HPV 18 NEGATIVE NEGATIVE [facility] HPV Other HR NEGATIVE NEGATIVE [facility] HPV Interpretation See Comment [facility] Comment: NEGATIVE for high-risk HPV *. * Testing negative for high risk HPV means that the specimen is negative for the following 14 types tested: ??types 16, 18, 31, 33, 35, 39, 45, 51, 52, 56, 58, 59, 66, and 68. ??The test is not intended to detect low risk HPV types. Adelaida Royer HPV test Specimen: HPV Testing - Cytology Liquid Based Prep Cervical swab (specimen) 05/25/2019 12:00 PM EDT 05/26/2019 10:17 PM EDT Narrative Resulting Agency Comment Spec In Lab / WKS Camelia REA PATHOLOGY/CYTOLOGY O RDERABLES [facility] [place] [address] * Supervisor Sewer Maintenance Cytology Final Report (05/25/2019 12:00 PM EDT) Supervisor Sewer Maintenance Cytology Final Report [id number] ? Location: [facility] The signing pathologist has (i) examined the relevant preparation(s) for the specimen(s) and (ii) rendered or confirmed the diagnosis(es). . ? Supervisor Sewer Maintenance Final DIAGNOSIS Normal Negative for intraepithelial lesion or malignancy (NILM). For consensus guidelines for the management of cervical cancer screening test results, please see: ?? http://www.asccp.o rg . Electronically signed by: ??Kunal COLLIER(ASCP)Ana Verified: ??06/02/2019 ?Director Of Casino Marketing Performed at: ??-[facility] Dept. of Pathology, [place], [place] DISCUSSION Shift in julian suggestive of bacterial vaginosis. HPV RESULTS HPV16 (Result) ?Negative HPV18 (Result) ?Negative HPVOHR (Result) ? Negative HPV (Interpretation) ?See Below HPV (Interpretation) Text: NEGATIVE for high-risk HPV *. *Testing negative for high risk HPV means that the specimen is negative for the following 14 types tested: types 16, 18, 31, 33, 35, 39, 45, 51, 52, 56, 58, 59, 66, and 68. The test is not intended to detect low risk HPV types. Adelaida royer HPV test Specimen: HPV Testing - Cytology Liquid Based Prep The Adelaida royer ? HPV test was validated, performed and results reported through the Laboratory for Clinical Genomics and Advanced Technology (CGAT) at [facility]. ? - Aashish Mann, PhD, [facility], Director-CGAT STATEMENT OF ADEQUACY Specimen submitted is satisfactory. Endocervical component present. CLINICAL INFORMATION HPV Option: ? Concurrent HPV CT/NG Option: ??(not provided) Preparation: ?Liquid Based Pap Specimen Source: ?Cervical Endocervical LBP LMP: ?7/8 Hormones?: ?Yes Hysterectomy?: ?No ?: ?No ?: ?No I.U.D.?: ?No Pelvic Radiation: ? No Prior PER DIEM NURSE Therapy?: ? No Hist Abnl Pap/Biopsy?: ??No Hist of HPV Vaccine?: ?? No Hist of Smoking?: ? Yes Hist of KEEGAN exposure?: ??No . CLINICAL INFORMATION Clinical Data, Significant Therapy and Clinical Impression ?? : ?? _ Referring Identifier: ?(not provided) This Pap Test has been evaluated with the assistance of the CrysalinPrep Pap Test Imaging System. Note: The Pap test is a screening test for cervical cancer with an inherent false-negative rate dependent upon several variables. For further information please contact the [facility] Laboratory. Reference: Leila SALINAS. Police Detention Attendant of Pap Smear Results. In: Conor BS, Marcos HH, ed. ??The Pap Smear. [place]: Kj, 2002: 71-77. [facility] 05/25/2019 12:0 0 PM EDT Narrative Resulting Agency Comment Spec In Lab / WKS Camelia REA PATHOLOGY/CYTOLOGY O RDERABLES [facility] [place] [address] from Last 3 Months or Most Recently Relevant to Health Maintenance Care Teams Orthodontist Assistant Relationship Specialty Start Date End Date Symone Cuevas APRN [address] [place] [id number] PCP - General 03/22/11
--- OUTSIDE RECORDS SUMMARY | 2024-06-05 16:47 | XMS_ITS | Encounter Summary ---
[place] [address] Care Team Providers Care Financial Health Counselor Name Role Phone Camelia Lee Primary Care Provider [phone] Reason for Referral * Consultation (Routine) - Closed Specialty Diagnoses / Procedures Referred By Contac t Referred To Contact Diagnoses Back pain Austen Alonzo MD [facility] [place] [address] [facility] [address] [place] [address] Referral ID Status Reason Start Date Expiration Date V isits Requested Visits Authorized [id number] Closed Consult Only 03/19/2011 09/15/2011 1 1 Reason for Visit * Reason Comments Backache low back and neck Encounter Details Date Type Department Care Team (Late st Contact Info) Description 03/19/2011 12:15 PM EDT Office [place] [phone] Austen Alonzo MD [facility] [place] [address] Back pain (Primary Dx) Discharge Disposition: Home Social History Tobacco Use Types Packs/Day Years Used Date Smoking Tobacco: Every Day Cigarettes 1 3 Tobacco Cessation:Ready to Q uit: No; Counseling Given: Yes Comments:patient is single, she has one child one and a half years old and is not working Alcohol Use Standard Drinks/Week Comments Not Asked 0 (1 standard drink = 0.6 oz pur e alcohol) Sex and Gender Information Value Date Recorded Sex Assigned at Not on file Gender Identity Not on file Sexual Orientation Not on file documented as of this encounter Last Filed Vital Signs Vital Sign Reading [...] Mass Index 33.2 03/19/2011 12:46 PM EDT documented in this encounter Progress Notes * Isabel Hurst - 03/22/2011 5:09 PM EDT * Austen Alonzo MD - 03/19/2011 2:00 PM EDT Subjective: Patient ID: Lory Salmeron is a 21 y.o. female. HPI The patient is a 21-year-old female with back and neck pain. This started approximately 10 years ago. She states that she was very to as a preteen and young teen and then when she entered high schoolher pain in her back and neck have progressively worse. It radiates to his shoulders and occasionally to her legs. She notes that she tried some physical therapy but it was not helpful but she would like to try it again. Her pain is constant y axes and wanes through the day. It is aching pain in her back. She denies weakness or numbness in her upper or lower extremities. She had an MRI of both her lumbar and cervical spine which on review of the images are normal. Review of Systems Constitutional: Negative. HENT: Negative. Eyes: Negative. Respiratory: Negative. Cardiovascular: Negative. Gastrointestinal: Positive for abdominal pain (GERD). Genitourinary: Negative. Musculoskeletal: Positive for back pain. Skin: Negative. Neurological: Negative. Hematological: Negative. Psychiatric/Behavioral: Positive for dysphoric mood. Objective: Physical Exam Constitutional: She is oriented to person, place, and time. She appears well- developed and well-nourished. Moderately obese HENT: Head: Normocephalic and atraumatic. Nose: Nose normal. Eyes: No scleral icterus. Neck: Normal range of motion. Neck supple. No tracheal deviation present. No thyromegaly present. Cardiovascular: Normal rate, regular rhythm and intact distal pulses. Exam reveals no gallop and nofriction rub. No murmur heard. Pulmonary/Chest: Effort normal and breath sounds normal. Abdominal: Soft. She exhibits no distension. Musculoskeletal: Normal range of motion. She exhibits tenderness (slightly tender back and neck). Lymphadenopathy: She has no cervical adenopathy. Neurological: She is alert and oriented to person, place, and time. She has normal reflexes. She displays normal reflexes. A cranial nerve deficit is present. Coordination normal. Skin: Skin is warm and dry. Psychiatric: She has a normal mood and affect. Her behavior is normal. Judgment and thought contentnormal. Assessment and Plan: Impression: Chronic back and neck pain. Osteopenia by bone density exam. Normal MRIs of cervical and lumbar spine. Recommendations: #1 medications I would recommend she try a nonsteroidal anti- inflammatory such as ibuprofen or Naprosyn or Mobic as that has helped in the past. I would avoid muscle relaxants and opioids.for her osteopenia I have suggested she start on a regimen of calcium and vitamin D. #2 physical medicine: I recommended she try and find another provider for physical therapy and to do some home exercise. I provided her with a book treat your own back. I have also suggested that shelose weight. Patient states that she has gained 30+ pounds since her child was born. #3 interventions: I see no place for any interventions at this time. #4 smoking cessation: I have advised her to stop smoking as this contributes both her osteopenia and pain as well as her negative for her general health and well-being. She states that she was not interested in stopping at this time but would consider it. I offered her the smoking cessation programat [facility] but she lives too far away. #5 education: I've given her also a referral to the Center for share decision- making three-view DVTs on living with chronic pain and chronic back pain. She may followup with me as needed. documented in this encounter Plan of Treatment Scheduled Referrals Name Type Priority Associated Diagnoses Orde r Schedule REFERRAL TO SHARED DECISION PROGRAM Outpatient Referral Routine Back pain Ordered: 03/19/2011 documented as of this encounter Visit Diagnoses Diagnosis Back pain- Primary Backache, unspecified documented in this encounter Care Teams Financial Health Counselor Relationship Specialty Start Date End Date Camelia Lee PA [address] [place] [id number] PCP - General 03/19/11 03/21/11 documented as of this encounter
--- OUTSIDE RECORDS SUMMARY | 2024-06-05 16:47 | XMS_ITS | Encounter Summary ---
Author Organization [facility] [place] [address] Care Team Providers Care Edger Machine Operator Name Role Phone Symone Cuevas APRN Primary Care Provider Encounter Details Date Type Department Care Team (Latest Contact Info) Description 05/25/2019 10:13 PM EDT - 05/25/2019 11:59 PM EDT Hospital [place] [phone] Discharge Disposition: Home Social History Tobacco Use [...] on file documented as of this encounter Medications at Time of Discharge Medication Sig Dispensed Refills Start Date End Date ranitidine (ZANTAC) 150 mg tablet Take 150 mg by mouth 2 times daily. sertraline (ZOLOFT) 50 mg tablet Take 50 mg by mouth daily. medroxyPROGESTERone,Contra cep, (DEPO-PROVERA) 150 mg/mL Syrg Inject 150 mg into the muscle Q 3 Months. 03/19/2011 documented as of this encounter Plan of Treatment Not on file documented as of this encounter Procedures Procedure Name Priority Date/Time Associated Diagnosis Comments HPV Routine 05/25/2019 12:00 PM EDT GRAVE DIGGER CYTOLOGY INTERPRETATION Routine 05/25/2019 12:00 PM EDT GRAVE DIGGER CYTOLOGY FINAL REPORT Routine 05/25/2019 12:00 PM EDT documented in this encounter Results * Muffle Worker Cytology Final Report (05/25/2019 12:00 PM EDT) Muffle Worker Cytology Final Report [id number] ? Location: [facility] The signing pathologist has (i) examined the relevant preparation(s) for the specimen(s) and (ii) rendered or confirmed the diagnosis(es). . ? Muffle Worker Final DIAGNOSIS Normal Negative for intraepithelial lesion or malignancy (NILM). For consensus guidelines for the management of cervical cancer screening test results, please see: ?? http://www.asccp.o rg . Electronically signed by: ??Kunal COLLIER(ASCP)Ana Verified: ??06/02/2019 ?Bath Solution Maker Performed at: ??-[facility] Dept. of Pathology, [place], [place] DISCUSSION Shift in julian suggestive of [...] - Cytology Liquid Based Prep The Adelaida oryer ? HPV test was validated, performed and results reported through the Laboratory for Clinical Genomics and Advanced Technology (CGAT) at [facility]. ? - Aashish Mann, PhD, HCLD, Director-[facility] STATEMENT OF ADEQUACY Specimen submitted is satisfactory. Endocervical component present. CLINICAL INFORMATION HPV Option: ? Concurrent HPV CT/NG Option: ??(not provided) Preparation: ?Liquid Based Pap Specimen Source: ?Cervical Endocervical LBP LMP: ?05/11/19 Hormones?: ?Yes Hysterectomy?: ?No ?: ?No ?: ?No I.U.D.?: ?No Pelvic Radiation: ? No Prior GRAVE DIGGER Therapy?: ? No Hist Abnl Pap/Biopsy?: ??No Hist of HPV Vaccine?: ?? No Hist of Smoking?: ? Yes Hist of KEEGAN exposure?: ??No . CLINICAL INFORMATION Clinical Data, Significant Therapy and Clinical Impression ?? : ?? _ Referring Identifier: ?(not provided) This Pap Test has been evaluated with the assistance of the Game TrustPrep Pap Test Imaging System. Note: The Pap test is a screening test for cervical cancer with an inherent false-negative rate dependent upon several variables. For further information please contact the [facility] Laboratory. Reference: Leila SALINAS. Tobacco Sorter of Pap Smear Results. In: Conor BS, Marcos HH, ed. ??The Pap Smear. [place]: Kj, 2002: 71-77. [facility] 05/25/2019 12:0 0 PM EDT Narrative Resulting Agency Comment Spec In Lab / WKS Camelia REA PATHOLOGY/CYTOLOGY O RDERABLES Performing Organization Address City/[facility] [place] [address] * GRAVE DIGGER Cytology Interpretation (05/25/2019 12:00 PM EDT) Muffle Worker Cytology Interpretation NILM [facility] Comment:Muffle Worker Cytology Final R eport Muffle Worker Cytology Comment Present [facility] Endocervical Component Present [facility] AP Specimen 05/25/2019 12:0 0 PM EDT 06/02/2019 5:07 PM EDT Narrative Resulting Agency Comment Spec In Lab / WKS Camelia REA PATHOLOGY/CYTOLOGY O RDERABLES Performing Organization Address [facility] [place] [address] * HPV (05/25/2019 12:00 PM EDT) HPV 16 NEGATIVE NEGATIVE [facility] HPV 18 NEGATIVE NEGATIVE [facility] HPV Other HR NEGATIVE NEGATIVE [facility] HPV Interpretation See Comment [facility] Comment: NEGATIVE for high-risk [...] / WKS Camelia REA PATHOLOGY/CYTOLOGY O RDERABLES Performing Organization Address City/[facility]/ZIP Co [place] [address] documented in this encounter Visit Diagnoses Not on filedocumented in this encounter Care Teams Edger Machine Operator Relationship Specialty Start Date End Date Symone Cuevas APRN [address] [place] [phone] PCP - General 03/22/11 documented as of this encounter
--- OUTSIDE RECORDS SUMMARY | 2024-06-05 16:47 | XMS_ITS | Encounter Summary ---
[place] [address] Care Team Providers Care Directional Survey Drafter Name Role Phone None Primary Care Provider Unavailabl e Encounter Details Date Type Department Care Team (Late st Contact Info) Description 03/16/2011 Abstract [place] [address] Saira Caceres RN Social History Tobacco Use Types Packs/Day Years Used Date Smoking Tobacco: Never Assessed Sex and Gender Information Value Date Recorded Sex Assigned at Not on file Gender Identity Not on file Sexual Orientation Not on file documented as of this encounter Plan of Treatment Not on file documented as of this encounter Visit Diagnoses Not on filedocumented in this encounter Care Teams Directional Survey Drafter Relationship Specialty Start Date End Date None None PCP - General 09/26/10 03/18/11 documented as of this encounter
--- OUTSIDE RECORDS SUMMARY | 2024-06-05 16:47 | XMS_ITS | Patient Health Record ---
Author Organization [facility] Address [address] [place] [address] Care Team Providers Care Compressor Station Engineer Chief Name Role Phone JesusCamelia Primary Care Provider [phone] Kishor Garcia [phone] REASON FOR REFERRAL No Information MEDICATIONS Medication [...] Depression with anxiety (F41.8) 6 Active confirmed [id number] Problem Osteopenia (M85.80) Active confirmed Osteopenia (450297284) Problem Oral contraceptive use (Z30.41) Active confirmed Surveillance of oral contraception done ([id number] ) Problem Overweight (BMI 25.0-29.9) (E66.3) Active confirmed Overweight (557844142) Problem Smoking (F17.200) Active confirmed [id number] PLAN OF TREATMENT No Information Insurance Providers Payer Name Payer Address Payer Phone Subscriber Number Group Number Insured Name Patient Relationship to Insured Coverage Start Date Coverage End Date [place] [employer] [place], [place] [id number] GILBERT PECK Self - patient is the insured SELF PAY [place] [address] [address] GILBERT PECK Self - patient is the insured MEDICAL (GENERAL) HISTORY Medical History History ICD Code depression with anxiety-stable off medic ation was on Depo Provera from 10/12-10/2017, Dr. 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
[2024-06-05 20:33] LABS: Hemoglobin A1C 5.7 % (<5.7)
[2024-06-05 20:35] LABS: ALT 21 U/L (14-59); AST 16 U/L (15-37); Albumin 3.4 g/dL (3.4-5.0); Alkaline Phosphatase 91 U/L (46-116); Anion Gap 10.3 mmol/L (3-11); BUN 10 mg/dL (7-18); Bilirubin, Total 0.41 mg/dL (0.2-1.0); CO2 24.7 mmol/L (21.0-32.0); CREATININE 0.9 mg/dL (0.55-1.02); Calculated LDL 178 mg/dL (<100); Chloride 106 mmol/L (98-107); Cholesterol 254 mg/dL (<200); Glucose 125 mg/dL (74-106); HDL Cholesterol 41 mg/dL (40-60); Potassium 3.4 mmol/L (3.5-5.1); Sodium 141 mmol/L (136-145); Total Protein 7.4 g/dL (6.4-8.2); Triglyceride 176 mg/dL (<150)
== END 2024-06-05 16:46 | disposition home or self-care (01) ==
LOC: NCHCN 16:45
PROVIDERS: PCP Nurse Practitioner Family; Visit Provider Nurse Practitioner Family
DX: Z12.4 Encounter for screening for malignant neoplasm of cervix (principal); Z00.00 Encounter for general adult medical examination without abnormal findings; Z13.1 Encounter for screening for diabetes mellitus; E55.9 Vitamin D deficiency, unspecified
CPT/HCPCS: 80053; 80061; 82306; 88142; 83036; 87624

== ENCOUNTER 2024-07-13 16:16 | Outpatient (REF) | payer MEDICAID, SELFPAY ==
--- NOTE | 2024-07-13 15:00 | ENDO_PTH ---
PATIENT: Lory Del Toro LOC: [facility] U#:[id number] AGE/SX: 34/F ROOM: RE07/13/[address]: Jenn Marrero DO : 1990 BED: DIS: 07/13/2024 SPEC #: [id number] RECD: 07/13/24 18:25 STATUS: AMARILIS REQ #: [id number] LUCI: 07/13/24 15:[address]: Jenn Marrero DEPT: Surgical Specimen RECD BY: Suzanne Tineo ENTERED: 07/13/24 18:25 SP TYPE: Endo OTHR DR: Arlen Nava Tissues: 1 - ENDOCERVICAL BX/CURRETTE Procedures: GROSS AND MICRO LEVEL 4 Comments: [id number]
== END 2024-07-13 16:17 | disposition home or self-care (01) ==
LOC: LBN 16:16
PROVIDERS: PCP Nurse Practitioner Family; Visit Provider Obstetrics & Gynecology
DX: R10.2 Pelvic and perineal pain (principal); R87.612 Low grade squamous intraepithelial lesion on cytologic smear of cervix (LGSIL)
CPT/HCPCS: 88305

== ENCOUNTER 2025-05-31 17:05 | Emergency (ER) | payer MEDICAID, SELFPAY ==
[2025-05-31 17:33] VITALS: BP 180/100; PULSE 87; RESP 18; TEMP 37.4; O2SAT 97
[2025-05-31] MEDS: Cyclobenzaprine 10 MG TAB, 3 TABS/BTL PO (20:27)
[2025-05-31 20:30] VITALS: BP 199/106; PULSE 99; RESP 18; TEMP 36.7; O2SAT 98
--- NOTE | 2025-05-31 22:49 | W.ED.GENAD ---
Discharge Plan Disposition Patient Disposition: Home Condition: Stable Discharge Details Clinical Impression: Neck strain Primary Care Provider: Unknown,Unknown ED Provider: Suzanne Turcios Home Meds and New Rx's Prescriptions: Continued almotriptan malate 6.25 mg tablet See Rx Instructions PO .COMPLEX Rx Instructions: take 1 tab (6.25 mg) at onset of migraine; if no relief may repeat 1 tab in 2 hrs; MAX 4 tabs (25 mg)/24 hr PO bupropion HCl 150 mg tablet extended release 24 hr 150 mg PO QAM All Day Allergy (cetirizine) 10 mg capsule 10 mg PO DAILY PRN cholecalciferol (vitamin D3) 25 mcg (1,000 unit) capsule 25 mcg PO DAILY multivit with min-folic acid [Adult Multivitamin Gummies] 200 mcg tablet,chewable 2 tab PO QDAY cranberry extract 500 mg tablet 1,000 mg PO DAILY Rx Instructions: administer with meals norgestimate-ethinyl estradiol [Tri-Sprintec (28)] 0.18/0.215/0.25 mg-35 mcg (28) tablet 1 tab PO DAILY escitalopram oxalate 20 mg tablet 20 mg PO DAILY sumatriptan succinate 50 mg tablet 100 mg PO ONCE PRN Rx Instructions: Take 100 mg at onset. Repeat after 2 hours if needed. No more than 200 mg / 24 hours. topiramate [Topamax] 25 mg tablet 25 mg PO QHS Qty: 90 2RF nicotine 21 mg/24 hr patch 24 hour 1 patch topical Q24H Patient Comments: APPLY 1 PATCH DAILY FOR SMOKING CESSATION Discharge Instructions Instructions: Cervical Muscle Strain (DC) Additional Instructions: Motrin and Tylenol as needed for pain Take the Flexeril for musculoskeletal pain limit your lifting for the next several days return with worsening pain, strength or sensation change, or should any new symptoms arise Stand Alone Forms: Work Release HPI General Date/Time Provider Initiated Documentation: 05/31/25 18:59. HPI Narrative: 35-year-old female with neck pain. Dog jumped on her yesterday, causing head to jolt and neck to pop. Pain radiates down arm. No other injuries reported. Related Data Home Medications ?Medication ?Instructions ?Recorded ?Confirmed cholecalciferol (vitamin D3) 25 25 mcg PO DAILY 01/10/23 05/31/25 mcg (1,000 unit) capsule cranberry extract 500 mg tablet 1,000 mg PO DAILY 01/10/23 05/31/25 escitalopram oxalate 20 mg tablet 20 mg PO DAILY 01/10/23 05/31/25 multivitamin with minerals-folic 2 tab PO QDAY 01/10/23 05/31/25 acid 200 mcg chewable tablet (Adult Multivitamin Gummies) norgestimate-ethinyl estradiol 1 tab PO DAILY 01/10/23 05/31/25 0.18mg/0.215mg/0.25mg-0.035mg()tablet (Tri-Sprintec ()) sumatriptan succinate 50 mg tablet 100 mg PO ONCE PRN 01/28/23 05/31/25 topiramate 25 mg tablet (Topamax) 25 mg PO QHS #90 tabs 05/28/23 05/31/25 almotriptan malate 6.25 mg tablet See Rx Instructions PO .COMPLEX 03/27/24 05/31/25 bupropion HCl 150 mg 24 hr tablet, 150 mg PO QAM 03/27/24 05/31/25 extended release cetirizine 10 mg capsule (All Day 10 mg PO DAILY PRN 03/27/24 05/31/25 Allergy (cetirizine)) nicotine 21 mg/24 hr daily 1 patch topical Q24H 05/31/25 05/31/25 transdermal patch Previous Rx's ?Medication ?Instructions ?Recorded topiramate 25 mg tablet (Topamax) 25 mg PO QHS #90 tabs 05/28/23 Allergies Allergy/AdvReac Type Severity Reaction Status Date / Time No Known Allergies Allergy Verified 05/31/25 17:37 General Stated Complaint: Nk/Back Pain ANALY: 4 Exam Narrative Exam Narrative: General Appearance: Alert, oriented, no acute distress. Vital signs: Within normal limits. HEENT: Within normal limits. Respiratory: Within normal limits. Back, Musculoskeletal: No midline tenderness. Mild tenderness in left upper trapezius. ROM intact. No thoracic spine tenderness. Skin: Warm and dry, no rash. Neurological: Neurovascularly intact. Course Vital Signs Vital signs: Vital Signs Temperature 37.4 C 05/31/25 17:33 Pulse 87 05/31/25 17:33 Respiratory Rate 18 05/31/25 17:33 Blood Pressure 180/100 H 05/31/25 17:33 Pulse Oximetry 97 05/31/25 17:33 Temperature 36.7 C 05/31/25 20:30 Temperature Source Oral 05/31/25 17:33 Pulse 99 H 05/31/25 20:30 Respiratory Rate 18 05/31/25 20:30 Blood Pressure 199/106 H 05/31/25 20:30 Blood Pressure Position Sitting 05/31/25 17:33 Pulse Oximetry 98 05/31/25 20:30 Oxygen Delivery Method Room Air 05/31/25 17:33 Oxygen Flow Rate 0 05/31/25 17:33 Pain Level 5 05/31/25 20:30 Medical Decision Making Initial Assessment: 35-year-old female with neck pain radiating down arm after dog jumped on her, causing neck to popping sensation. Mild tenderness in left upper trapezius. No midline or thoracic spine tenderness. Neurovascularly intact, no acute distress. ED Course: - Flexeril given. Final Assessment: Flexeril administered for likely musculoskeletal pain. Imaging not required. Clinical Impression: - Musculoskeletal pain. Disposition: - Discharge home, return precautions reviewed, patient understood. Patient Education: Return precautions reviewed, patient understood. PFSH All Active Problems (Updated 05/31/25 @ 20:15 by RONA Hollins) Neck strain (Acute) LGSIL on Pap smear of cervix (Acute) 06/27-LSIL, HPV+ Colpo 07/13/2024, ECC, Bx -benign Pap recommended 07/29 Migraine headache without aura (Acute) Migraine headache with aura (Acute) Medical History Anxiety with depression Generalized anxiety disorder History of prediabetes Overweight Vitamin D deficiency Osteopenia Migraine Snoring Acute sinusitis History of neck pain Back pain Family History Maternal Grandmother Diabetes Heart disease Maternal Grandfather Diabetes Paternal Grandmother Hypertension Stroke Social History Smoking/Tobacco Use Status: Former Tobacco Use Quit status: not considering quitting Smoking risk assessment performed?: Yes Alcohol Intake: never Drug use: Never Substance use type: does not use Counseling given: No Counseling provided: none Do you feel safe at home: Yes Do you feel safe in your relationship?: Yes
== END 2025-05-31 20:30 | disposition home or self-care (01) ==
PROVIDERS: Emergency Provider Physician Assistant
DX: S16.1XXA Strain of muscle, fascia and tendon at neck level, initial encounter (principal); X58.XXXA Exposure to other specified factors, initial encounter
CPT/HCPCS: 99283 ×2

== ENCOUNTER 2025-06-11 17:58 | Outpatient (REF) | payer MEDICAID, SELFPAY ==
[2025-06-11 19:48] LABS: Hemoglobin A1C 5.6 % (<5.7)
[2025-06-11 19:57] LABS: ALT 28 U/L (14-59); AST 17 U/L (15-37); Albumin 3.4 g/dL (3.4-5.0); Alkaline Phosphatase 75 U/L (46-116); Anion Gap 9.5 mmol/L (3-11); BUN 12 mg/dL (7-18); Bilirubin, Total 0.3 mg/dL (0.2-1.0); CO2 25.5 mmol/L (21.0-32.0); Calcium 9.1 mg/dL (8.5-10.1); Calculated LDL 98 mg/dL (<100); Chloride 102 mmol/L (98-107); Cholesterol 189 mg/dL (<200); Estimated GFR 114.88 (mL/min/1.73m2); Glucose 103 mg/dL (74-106); HDL Cholesterol 54 mg/dL (>or=50); Potassium 4.3 mmol/L (3.5-5.1); Sodium 137 mmol/L (136-145); Total Protein 7.5 g/dL (6.4-8.2); Triglyceride 188 mg/dL (<150)
== END 2025-06-11 17:59 | disposition home or self-care (01) ==
LOC: NCHCN 17:58
PROVIDERS: Visit Provider Nurse Practitioner Family
DX: R73.03 Prediabetes (principal); E78.2 Mixed hyperlipidemia
CPT/HCPCS: 80053; 80061; 83036

== ENCOUNTER 2025-08-03 15:34 | Outpatient (REF) | payer MEDICAID, SELFPAY ==
--- NOTE | 2025-08-03 15:40 | PAPFT_PTH ---
PATIENT: Lory Del Toro LOC: [facility] U#:[id number] AGE/SX: 35/F ROOM: RE08/03/[address]: Jenn Marrero DO : 1990 BED: DIS: 08/03/2025 SPEC #: [id number] RECD: 08/03/25 18:22 STATUS: AMARILIS REQ #: [id number] LUCI: 08/03/25 15:[address]: Jenn Marrero DEPT: [facility] Cytology RECD BY: Suzanne Tineo ENTERED: 08/03/25 18:22 SP TYPE: PAPFT OTHR DR: Unknown,Unknown Tissues: 1 - CX/ENDOCX FOR PAP SMEARS Procedures: PAP THIN PREP/[facility] Screening HPV DNA PROBE Comments: [id number] (HPV 16 & 18/45)
== END 2025-08-03 15:35 | disposition home or self-care (01) ==
LOC: LBN 15:34
PROVIDERS: Visit Provider Obstetrics & Gynecology
DX: Z12.4 Encounter for screening for malignant neoplasm of cervix (principal)
CPT/HCPCS: 88142; 87624

== ENCOUNTER 2025-10-05 16:28 | Outpatient (REF) | payer MEDICAID, SELFPAY ==
--- NOTE | 2025-10-05 16:16 | ENDO_PTH ---
PATIENT: Lory Del Toro LOC: [facility] U#:[id number] AGE/SX: 35/F ROOM: RE10/05/[address]: Jenn Marrero DO : 1990 BED: DIS: 10/05/2025 SPEC #: [id number] RECD: 10/05/25 18:15 STATUS: AMARILIS RE #: [id number] LUCI: 10/05/25 16:[address]: Jenn Marrero DEPT: Surgical Specimen RECD BY: Suzanne Tineo ENTERED: 10/05/25 18:16 SP TYPE: Endo OTHR DR: Maria Guallpa Tissues: 1 - ENDOCERVICAL BX/CURRETTE Procedures: GROSS AND MICRO LEVEL 4 Comments: [id number]
== END 2025-10-05 16:29 | disposition home or self-care (01) ==
LOC: LBN 16:28
PROVIDERS: PCP Nurse Practitioner Family; Visit Provider Obstetrics & Gynecology
DX: D26.0 Other benign neoplasm of cervix uteri (principal)
CPT/HCPCS: 88305